=== PATIENT | female | born 1945 | race Caucasian/White ===

== ENCOUNTER 2020-02-23 11:10 | Emergency (ER) | payer BC, MEDICARE ==
[2020-02-23 11:15] VITALS: RESP 18
[2020-02-23 12:33] LABS: Basophils % (A) 0 %; Eosinophils # (A) 0.1 k/uL (0-0.7); Eosinophils % (A) 2 %; HCT 34.7 % (34.0-46.0); Lymphocytes # (A) 1.3 k/uL (1.0-4.8); Lymphocytes % (A) 22 %; MCH 30.7 pg (25.0-35.0); MCHC 34.7 g/dL (31.0-37.0); MCV 88.6 fL (80.0-100.0); Mean Platelet Volume 7.3; Monocytes # (A) 0.4 k/uL (0-1.0); Monocytes % (A) 7 %; Neutrophils # (A) 3.9 k/uL (1.3-7.7); Neutrophils % (A) 67 %; Platelet Count 255 k/uL (150-450); RBC 3.92 m/uL (3.80-5.40); RDW 11.9 % (11.5-15.5); WBC 5.9 k/uL (3.8-10.6)
[2020-02-23 12:34] LABS: Appearance,Urine Clear (Clear); Bilirubin,Urine Negative (Negative); Blood,Urine Negative (Negative); Color,Urine Light Yellow; Glucose,Urine (UA) Negative (Negative); Ketones,Urine Negative (Negative); Leukocyte Esterase,Urine Negative (Negative); Nitrite,Urine Negative (Negative); Protein,Urine Negative (Negative); Specific Gravity,Urine 1.008 (1.001-1.035); Urobilinogen,Urine <2.0 mg/dL (<2.0)
[2020-02-23 12:45] LABS: ALT 16 U/L (4-34); AST 32 U/L (14-36); African American GFR (CKD) >90 (>60 ml/min/1.73 sqM); Albumin 4.1 g/dL (3.5-5.0); Alkaline Phosphatase 155 U/L (38-126); Amylase 59 U/L (30-110); Anion Gap 8 mmol/L; Blood Urea Nitrogen 12 mg/dL (7-17); Calcium 9.3 mg/dL (8.4-10.2); Carbon Dioxide 25 mmol/L (22-30); Chloride 104 mmol/L (98-107); Glucose 90 mg/dL (74-99); Lipase 204 U/L (23-300); Non-African American GFR(CKD) 86 (>60 ml/min/1.73 sqM); Potassium 4.1 mmol/L (3.5-5.1); Sodium 137 mmol/L (137-145); Total Bilirubin 0.6 mg/dL (0.2-1.3); Total Protein 6.8 g/dL (6.3-8.2)
[2020-02-23] MEDS ORDERED: SODIUM CHLORIDE 0.9% 1,000 ML IV STA (13:08)
[2020-02-23] MEDS ORDERED: MORPHINE SULFATE 4 MG/ML SYRINGE IVP STA (13:08)
--- NOTE | 2020-02-23 13:11 | ED ---
General Adult HPI - General Chief complaint: Abdominal Pain Stated complaint: abd pain Time Seen by Provider: 02/23/20 12:35 Source: patient, RN notes reviewed Mode of arrival: ambulatory Limitations: no limitations - History of Present Illness Initial comments: Patient is a pleasant 74-year-old female presenting to the emergency Department with complaints of abdominal discomfort. Onset of symptoms was close to week ago. Symptoms are starting to become severe. Symptoms have progressed. Discomfort is left lower abdomen. No history of similar symptoms previously. Patient states at first she thought it was just gas and was hoping it would go away however has not. No nausea vomiting. No constipation. Patient has had some occasional loose stools. No urinary symptoms. - Related Data Allergies Allergy/AdvReac Type Severity Reaction Status Date / Time No Known Allergies Allergy Verified 02/23/20 11:15 Review of Systems ROS Statement: Those systems with pertinent positive or pertinent negative responses have been documented in the HPI. ROS Other: All systems not noted in ROS Statement are negative. Constitutional: Denies: fever Eyes: Denies: eye pain ENT: Denies: ear pain Respiratory: Denies: cough Cardiovascular: Denies: chest pain Endocrine: Denies: fatigue Gastrointestinal: Reports: as per HPI, abdominal pain. Denies: nausea, vomiting Genitourinary: Denies: dysuria, hematuria Musculoskeletal: Denies: back pain Skin: Denies: rash Neurological: Denies: weakness Past Medical History Past Medical History: No Reported History Past Surgical History: Bladder Surgery, Hysterectomy, Tonsillectomy Additional Past Surgical History / Comment(s): rectal surgery General Exam Limitations: no limitations General appearance: alert, in no apparent distress Head exam: Present: normocephalic Eye exam: Present: normal appearance Neck exam: Present: normal inspection Respiratory exam: Present: normal lung sounds bilaterally Cardiovascular Exam: Present: regular rate, normal rhythm Expanded Peripheral pulses: 2+: Posterior Tibialis (R), Posterior Tibialis (L) GI/Abdominal exam: Present: soft, tenderness (Moderate tenderness left lower quadrant), normal bowel sounds. Absent: distended, guarding, rebound, rigid, pulsatile mass Extremities exam: Present: normal inspection Neurological exam: Present: alert Psychiatric exam: Present: normal affect, normal mood Skin exam: Present: normal color Course Vital Signs 02/23/20 11:12 Temperature 97.3 F L Pulse Rate 98 Respiratory 18 Rate Blood Pressure 164/83 O2 Sat by Pulse 95 Oximetry Medical Decision Making - Medical Decision Making Patient reevaluated. Patient updated on results and concerns. Case discussed with Dr. emerson, covering with Dr. Justice, who will admit covering for Dr. Vang. CK 125 will be ordered. Consults will be placed with surgery and [employer]. - Lab Data Result diagrams: 02/23/20 12:20 02/23/20 12:20 Lab Results 02/23/20 02/23/20 02/23/20 Range/Units 12:20 12:20 12:20 WBC 5.9 (3.8-10.6) k/uL RBC 3.92 (3.80-5.40) m/uL Hgb 12.0 (11.4-16.0) gm/dL Hct 34.7 (34.0-46.0) % MCV 88.6 (80.0-100.0) fL MCH 30.7 (25.0-35.0) pg MCHC 34.7 (31.0-37.0) g/dL RDW 11.9 (11.5-15.5) % Plt Count 255 (150-450) k/uL MPV 7.3 Neutrophils % 67 % Lymphocytes % 22 % Monocytes % 7 % Eosinophils % 2 % Basophils % 0 % Neutrophils # 3.9 (1.3-7.7) k/uL Lymphocytes # 1.3 (1.0-4.8) k/uL Monocytes # 0.4 (0-1.0) k/uL Eosinophils # 0.1 (0-0.7) k/uL Basophils # 0.0 (0-0.2) k/uL Sodium 137 (137-145) mmol/L Potassium 4.1 (3.5-5.1) mmol/L Chloride 104 (98-107) mmol/L Carbon Dioxide 25 (22-30) mmol/L Anion Gap 8 mmol/L BUN 12 (7-17) mg/dL Creatinine 0.68 (0.52-1.04) mg/dL Est GFR (CKD-EPI)AfAm >90 (>60 ml/min/1.73 sqM) Est GFR (CKD-EPI)NonAf 86 (>60 ml/min/1.73 sqM) Glucose 90 (74-99) mg/dL Calcium 9.3 (8.4-10.2) mg/dL Total Bilirubin 0.6 (0.2-1.3) mg/dL AST 32 (14-36) U/L ALT 16 (4-34) U/L Alkaline Phosphatase 155 H (38-126) U/L Total Protein 6.8 (6.3-8.2) g/dL Albumin 4.1 (3.5-5.0) g/dL Amylase 59 (30-110) U/L Lipase 204 (23-300) U/L Urine Color Light Yellow Urine Appearance Clear (Clear) Urine pH 6.0 (5.0-8.0) Ur Specific Berthold 1.008 (1.001-1.035) Urine Protein Negative (Negative) Urine Glucose (UA) Negative (Negative) Urine Ketones Negative (Negative) Urine Blood Negative (Negative) Urine Nitrite Negative (Negative) Urine Bilirubin Negative (Negative) Urine Urobilinogen <2.0 (<2.0) mg/dL Ur Leukocyte Esterase Negative (Negative) - Radiology Data Radiology results: image reviewed (Computed tomography scan abdomen pelvis shows complex bilateral adnexal masses with peritoneal and omental implants. Intubation into the sigmoid colon suspected. Fever over and carcinoma. Pulmonary nodule. Mild bilateral hydronephrosis.) Disposition Clinical Impression: Pelvic mass Disposition: ADMITTED IP TO THIS HOSP Is patient prescribed a controlled substance at d/c from ED?: No Referrals: Erick Vang DO [Primary Care Provider] - 1-2 days Decision Time: 14:22
--- NOTE | 2020-02-23 14:08 | CT ---
EXAMINATION TYPE: CT abdomen pelvis w con DATE OF EXAM: 02/23/2020 COMPARISON: None HISTORY: Left lower quadrant pain CT DLP: 1023.1 mGycm Automated exposure control for dose reduction was used. CONTRAST: CT scan of the abdomen pelvis is performed with IV Contrast, patient injected with 100 mL of Isovue 3 00. FINDINGS- LUNG BASES-subsegmental linear changes most typical of atelectasis. Within the lungs. There is a 2 mm subpleural nodule left lower lobe axial image 11 laterally. 2 small to characterize. No pleural effu alexia. 6 mm subpleural density along the anterior pleura the right upper lobe on image 1 likely is pos tinflammatory. LIVER/GB- No gross abnormality is appreciated. PANCREAS- No gross abnormality is seen. SPLEEN- No gross abnormality is seen. ADRENALS- No gross abnormality is seen. KIDNEYS/BLADDER-no evidence of renal mass. There does appear to mild dilation of both ureters which c ould be related to pelvic mass greater on the left. BOWEL-there is a large mass involving the pelvis which appears to either involve or invade sigmoid co andreas. Appears to be somewhat heterogeneous with possible cystic on. Measuring 8 cm. Additional cystic lesion in the right adnexa measuring 5 cm. Differential diagnosis would include a bilateral ovarian c arcinoma with involvement of the sigmoid colon. Primary colonic neoplasm also in the differential nicolasa gnosis but felt less likely. Trace amount of fluid is seen in the pelvis. There are pelvic varices.. LYMPH NODES- No greater than 1cm abdominal or pelvic lymph nodes areappreciated. No sizable retroper itoneal adenopathy. No definite sizable lymph nodes within the pelvis. Omental and peritoneal implant s are noted as discussed. OSSEOUS STRUCTURES-hypertrophic and degenerative changes spine with grade 1 anterolisthesis L4 on L5. Multilevel facet arthropathy.. OTHER- large pelvic mass measuring 8 to 9 cm on the left with either encasement or displacement:. Ad jacent 5 cm right adnexal cystic mass. Ovarian carcinoma is favored over colonic adenocarcinoma. Both are in the differential diagnosis. There appear to be multiple intra-abdominal peritoneal and omenta l implants largest on the left measuring 4 cm. Additionally, along the right flank there appears to b e a cystic structure measuring a craniocaudal dimension of 6.3 cm appears separate from bowel may rep resent additional cystic implant. Calcifications in the mesentery are incidentally noted. There is a nodular density in the left pelvis on the right axial image 55 likely related to the right ovarian ma ss or a separate implant measuring 2.6 cm. IMPRESSION- 1. Complex bilateral adnexal masses with peritoneal and omental implants. Visualization the sigmoid c olon is difficult due to either compression, invasion or displacement of the sigmoid colon of these s uspected complex pelvic masses to be partially cystic component. Would favor ovarian carcinoma over c olon carcinoma. Correlate with CA 125. 2. 2 mm left lower lobe pulmonary nodule too small to characterize subpleural location. 3. Very mild bilateral hydronephrosis likely related to pelvic masses are
[2020-02-23] MEDS ORDERED: traMADol 50 MG TAB PO PRN (14:23)
[2020-02-23] MEDS ORDERED: ACETAMINOPHEN TAB 325 MG TAB PO PRN (14:23)
[2020-02-23] MEDS ORDERED: NALOXONE 0.4 MG/ML 1 ML VIAL IV PRN (14:23)
[2020-02-23] MEDS ORDERED: MORPHINE SULFATE 4 MG/ML SYRINGE IV PRN (14:23)
[2020-02-23] MEDS ORDERED: SODIUM CHLORIDE 0.9% 1,000 ML IV SCH (14:30)
--- NOTE | 2020-02-23 15:24 | P.HPIM ---
History of Present Illness this is a pleasant 74 years old female with no significant past medical history.she has past surgical history of hysterectomy. she is a patient of Dr. Vang. Presents because of left lower quadrant abdominal pain of more than a week duration, pain also radiates to the suprapubic region, felt like crampy and labor. The description of the patient, about 7/10 in severity. Associated with some loose stool but no lauryn diarrhea, no other abdominal pain or nausea vomiting. She tolerates diet well. she denies chest pain or dyspnea. No fever. No weakness she denies smoking, alcohol or illicit drugs patient Vitas looks stable.labs were unremarkable including CBC, BMP, liver enzymes,normal lipase 204, urine analysis is unremarkable. CT of the abdomen and pelvis showing left lower lobe lung nodule, 2 mm, right upper lobe pulmonary nodule, 6 mm. Large pelvic mass which is either involving or invade the sigmoid colon, about 8 cm. Also there is right technique Trupti cystic lesion, 5 cm. Multiple intra-abdominal peritoneal and omental implants largest in the left measured 4 cm Review of Systems CONSTITUTIONAL: No fever, no malaise, no fatigue. HEENT: No recent visual problems or hearing problems. Denied any sore throat. CARDIOVASCULAR: No orthopnea, PND, no palpitations, no syncope. PULMONARY: No shortness of breath, no cough, no hemoptysis. GASTROINTESTINAL: No diarrhea, no nausea, no vomiting, no abdominal pain. Normoactive bowel sounds. NEUROLOGICAL: No headaches, no weakness, no numbness. HEMATOLOGICAL: Denies any bleeding or petechiae. GENITOURINARY: Denies any burning micturition, frequency, or urgency. MUSCULOSKELETAL/RHEUMATOLOGICAL: Denies any joint pain, swelling, or any muscle pain. ENDOCRINE: Denies any polyuria or polydipsia. Past Medical History Past Medical History: No Reported History Past Surgical History: Bladder Surgery, Hysterectomy, Tonsillectomy Additional Past Surgical History / Comment(s): rectal surgery Medications and Allergies Allergies Allergy/AdvReac Type Severity Reaction Status Date / Time No Known Allergies Allergy Verified 02/23/20 11:15 Physical Exam Vitals: Vital Signs Temp Pulse Resp BP Pulse Ox 02/23/20 11:12 97.3 F L 98 18 164/83 95 Intake and Output 02/22/20 02/23/20 02/23/20 22:59 06:59 14:59 Other: Weight 74.843 kg GENERAL: The patient is alert and oriented x3, not in any acute distress. Well developed, well nourished. HEENT: Pupils are round and equally reacting to light. EOMI. No scleral icterus. No conjunctival pallor. Normocephalic, atraumatic. No pharyngeal erythema. No thyromegaly. CARDIOVASCULAR: S1 and S2 present. No murmurs, rubs, or gallops. PULMONARY: Chest is clear to auscultation, no wheezing or crackles. ABDOMEN: Soft, nontender, nondistended, normoactive bowel sounds. No palpable organomegaly. MUSCULOSKELETAL: No joint swelling or deformity. EXTREMITIES: No cyanosis, clubbing, or pedal edema. NEUROLOGICAL: Gross neurological examination did not reveal any focal deficits. SKIN: No rashes. No petechiae Results CBC & Chem 7: 02/23/20 12:20 02/23/20 12:20 Labs: Abnormal Lab Results - Last 24 Hours (Table) 02/23/20 Range/Units 12:20 Alkaline Phosphatase 155 H (38-126) U/L Assessment and Plan Assessment: 8 cm pelvic mass involving the sigmoid colon, could be primarily from the colon or the ovary with metastasis to the colon Left ovarian adnexal mass about 5 cm, possible right adnexal mass, 2.6 cm multiple Peritoneal and omental implants suspicious for metastatic disease. Pulmonary nodules 2 history of hysterectomy Plan: this is a pleasant 74 years old female who presents with abdominal pain and pelvic mass and possible bilateral ovarian masses. Continue with gentle hydration. Pain management. Follow-up recommendation by surgery and [employer] team Labs and medication were reviewed.. Continue same treatment. Continue with symptomatic treatment. Resume home medication. Monitor lytes and vitals. DVT and GI prophylaxis. Further recommendations depends on the clinical course of the patient DVT prophylaxis: Subcutaneous heparin GI Prophylaxis: Pepcid PT/OT: Pending Prognosis is guarded
[2020-02-23 19:52] VITALS: BP 190/76; PULSE 92; TEMP 97.1
[2020-02-23] MEDS ORDERED: HEPARIN SODIUM,PORCINE 5,000 UNIT/ML 1 ML VIAL SQ SCH (21:00)
[2020-02-23] MEDS ORDERED: FAMOTIDINE 20 MG/2 ML VIAL IV SCH (21:00)
[2020-02-24 02:20] LABS: Alpha Fetoprotein, Tumor Mkr <2.5 ng/mL (0.0-7.9); Carcinoembryonic Antigen 0.6 ng/mL (0.0-4.9)
== END 2020-02-23 19:51 | disposition left against medical advice (07) ==
LOC: EC 11:10 → 2ORMAIN 14:23 → UNDOADMIN 14:23 → EC 19:51
DX: K63.89 Other specified diseases of intestine (principal); N83.8 Other noninflammatory disorders of ovary, fallopian tube and broad ligament; R91.8 Other nonspecific abnormal finding of lung field; Z90.710 Acquired absence of both cervix and uterus; Z53.29 Procedure and treatment not carried out because of patient's decision for other reasons
CPT/HCPCS: 36415; 80053; 86304; 82378; 82150; 83690; 85025; 81003; 82105; 74177; 99284; 96360; 96361 ×5; Q9967

== ENCOUNTER 2020-08-02 09:28 | Observation (INO) | payer MEDICARE ==
[2020-08-02] MEDS ORDERED: ASPIRIN 81 MG PO STA (09:57)
[2020-08-02] MEDS ORDERED: NITROGLYCERIN SL TABS 0.4 MG TAB SUBLINGUAL STA (09:57)
[2020-08-02] MEDS ORDERED: SODIUM CHLORIDE 0.9% 1,000 ML IV STA (09:58)
[2020-08-02] MEDS ORDERED: SODIUM CHLORIDE 0.9% 500 ML 500 ML IV STA (09:58)
--- NOTE | 2020-08-02 10:14 | ED ---
Chest Pain HPI - General Chief Complaint: Chest Pain Stated Complaint: Chest/Back Pain Time Seen by Provider: 08/02/20 09:40 Source: patient, RN notes reviewed Mode of arrival: wheelchair Limitations: physical limitation - History of Present Illness Initial Comments: This is a 74-year-old female with a history of ovarian cancer with her last chemo approximately month ago no prior history however of lung or heart disease who presents with complaints of the onset of retrosternal chest pressure with some radiation to left arm. She states is currently for/10 in severity it was worse last night. She states it started around 11:30 PM last evening. He has been intermittent. No other complaints or modifying factors she states she did take some aspirin last evening. MD Complaint: chest pain, other - Related Data Home Medications Medication Instructions Recorded Confirmed Biotin 5 mg PO DAILY 02/23/20 08/02/20 Multivitamins, Thera [Multivitamin 1 tab PO DAILY 02/23/20 08/02/20 (formulary)] Ascorbic Acid [Vitamin C] 1,000 mg PO DAILY 08/02/20 08/02/20 Losartan [Cozaar] 25 mg PO DAILY 08/02/20 08/02/20 OLANZapine [ZyPREXA] 5 mg PO DIRECTED 08/02/20 08/02/20 ondansetron HCL [Zofran] 8 mg PO DIRECTED 08/02/20 08/02/20 Allergies Allergy/AdvReac Type Severity Reaction Status Date / Time No Known Allergies Allergy Verified 08/02/20 10:26 Review of Systems ROS Statement: Those systems with pertinent positive or pertinent negative responses have been documented in the HPI. ROS Other: All systems not noted in ROS Statement are negative. EKG Findings - EKG Results: EKG: interpreted by SAMEER, sinus rhythm (Sinus tachycardia rate of 118. We'll 132 QRS 72 QT since QTC 320/[address] configuration) Past Medical History Past Medical History: Cancer, Hypertension Additional Past Medical History / Comment(s): ovarian ca, anemia, low white count History of Any Multi-Drug Resistant Organisms: None Reported Past Surgical History: Bladder Surgery, Hysterectomy, Tonsillectomy Additional Past Surgical History / Comment(s): rectal surgery Past Psychological History: No Psychological Hx Reported Smoking Status: Never smoker Past Alcohol Use History: None Reported Past Drug Use History: None Reported General Exam - General Exam Comments Initial Comments: This is a well-developed asthenic appearing female who is awake alert oriented 3 Limitations: physical limitation General appearance: alert, in no apparent distress Head exam: Present: atraumatic, normocephalic, normal inspection Eye exam: Present: normal appearance, PERRL, EOMI. Absent: scleral icterus, conjunctival injection, periorbital swelling ENT exam: Present: mucous membranes dry Neck exam: Present: normal inspection. Absent: tenderness, meningismus, lymphadenopathy Respiratory exam: Present: normal lung sounds bilaterally. Absent: respiratory distress, wheezes, rales, rhonchi, stridor Cardiovascular Exam: Present: normal rhythm, tachycardia, normal heart sounds. Absent: systolic murmur, diastolic murmur, rubs, gallop, clicks GI/Abdominal exam: Present: soft, normal bowel sounds. Absent: distended, tenderness, guarding, rebound, rigid Extremities exam: Present: normal inspection, full ROM, normal capillary refill. Absent: tenderness, pedal edema, joint swelling, calf tenderness Back exam: Present: normal inspection Neurological exam: Present: alert, oriented X3, CN II-XII intact Psychiatric exam: Present: normal affect, normal mood Skin exam: Present: warm, dry, intact, normal color. Absent: rash Course Vital Signs 08/02/20 08/02/20 08/02/20 09:33 10:25 11:36 Temperature 97.2 F L Pulse Rate 135 H 112 H 105 H Respiratory 20 18 18 Rate Blood Pressure 141/70 134/58 117/56 O2 Sat by Pulse 97 97 97 Oximetry Chest Pain MDM - MDM I did discuss findings with patient family as well as with Dr. Shimon fernandes. Patient will be admitted for evaluation by cardiology. Disposition Clinical Impression: Chest pain, Tachycardia, History of ovarian cancer Disposition: ADMITTED IP TO THIS [facility] Condition: Fair Referrals: Miky Engel MD [Primary Care Provider] - 1-2 days
[2020-08-02 10:35] LABS: Basophils % (A) 0 %; Eosinophils % (A) 0 %; HCT 26.5 % (34.0-46.0); HGB 9.6 gm/dL (11.4-16.0); Lymphocytes # (A) 0.7 k/uL (1.0-4.8); Lymphocytes % (A) 6 %; MCHC 36.1 g/dL (31.0-37.0); MCV 91.4 fL (80.0-100.0); Mean Platelet Volume 7.2; Monocytes # (A) 0.7 k/uL (0-1.0); Monocytes % (A) 6 %; Neutrophils # (A) 9.2 k/uL (1.3-7.7); Neutrophils % (A) 87 %; Platelet Count 158 k/uL (150-450); RDW 15.3 % (11.5-15.5); WBC 10.6 k/uL (3.8-10.6)
[2020-08-02 11:01] LABS: Albumin 4.3 g/dL (3.5-5.0); Calcium 9.3 mg/dL (8.4-10.2); Magnesium 1.6 mg/dL (1.6-2.3); Potassium 3.7 mmol/L (3.5-5.1); Total Bilirubin 0.7 mg/dL (0.2-1.3); Total Protein 6.9 g/dL (6.3-8.2)
--- NOTE | 2020-08-02 11:08 | XR ---
EXAMINATION TYPE: XR chest 2V DATE OF EXAM: 08/02/2020 COMPARISON: NONE HISTORY: Left-sided chest pain into arm. History of ovarian cancer on chemotherapy. TECHNIQUE: Frontal and lateral views of the chest are obtained. FINDINGS: There is some chronic parenchymal change with tiny left pleural effusion. No suspicious fo jeanne airspace opacity or pneumothorax. The cardiac silhouette size is upper limits of normal. The os seous structures are somewhat demineralized. IMPRESSION: Chronic changes with tiny left pleural effusion. No suspicious focal infiltrate.
[2020-08-02 11:14] LABS: INR 0.9 (<1.2); Prothrombin Time 10.2 sec (9.0-12.0)
[2020-08-02 11:25] LABS: Partial Thromboplastin Time 21.4 sec (22.0-30.0)
--- NOTE | 2020-08-02 12:49 | CT ---
EXAMINATION TYPE: CT angio chest DATE OF EXAM: 08/02/2020 12:35 PM COMPARISON: Same day chest x-ray. HISTORY: Chest/back pain, history of ovarian cancer. CT DLP: 322 mGycm Automated exposure control for dose reduction was used. CONTRAST: CTA scan of the thorax is performed with IV Contrast, patient injected with 68 mL of Isovue 370, pulm onary embolism protocol. MIP images are created and reviewed. FINDINGS: LUNGS: Mild underlying emphysematous change. Mild linear scarring and/or atelectasis in the lower cecilio gs. Dependent atelectasis in the bases. No suspicious focal consolidation or groundglass opacity. Tra ce left-sided pleural effusion. No pneumothorax bilaterally. No concerning pulmonary nodules or dany s MEDIASTINUM: There is satisfactory enhancement of the pulmonary artery and its branches, there is no CT evidence for pulmonary embolism. There are no greater than 1 cm hilar or mediastinal lymph nodes. . Prominent but subcentimeter left hilar lymph nodes . No cardiomegaly is seen. Trace pericardial e ffusion. OTHER: Small hiatal hernia. Exaggerated thoracic kyphosis with mild multilevel anterior spurring. IMPRESSION: No CT evidence for acute pulmonary embolism. Mild chronic emphysematous change without ac alfa pulmonary infiltrate.
[2020-08-02] MEDS ORDERED: NITROGLYCERIN SL TABS 0.4 MG TAB SUBLINGUAL PRN (13:35)
[2020-08-02] MEDS ORDERED: OLANZapine 5 MG TAB PO SCH (13:45)
[2020-08-02] MEDS ORDERED: NON FORMULARY DRUG (Ondansetron Hcl [Zofran] 8 MG Tablet) PO SCH (13:45)
[2020-08-03 03:29] LABS: Cholesterol 188 mg/dL (<200); HDL Cholesterol 56 mg/dL (40-60); LDL Cholesterol,Calculated 117 mg/dL (0-99); Triglycerides 74 mg/dL (<150)
[2020-08-03 08:01] VITALS: RESP 16
[2020-08-03] MEDS ORDERED: MULTIVITAMINS, THERA 1 EACH TAB PO SCH (09:00)
[2020-08-03] MEDS ORDERED: LOSARTAN 25 MG TAB PO SCH (09:00)
[2020-08-03] MEDS ORDERED: ASPIRIN 325 MG TAB PO SCH (09:00)
[2020-08-03] MEDS ORDERED: NON FORMULARY DRUG (Biotin [Biotin] 5 MG Capsule) PO SCH (09:00)
[2020-08-03] MEDS ORDERED: ASCORBIC ACID 500 MG TAB PO SCH (09:00)
[2020-08-03 11:16] LABS: C Reactive Protein 5.8 mg/dL (<1.0)
--- NOTE | 2020-08-03 11:33 | P.HPIM ---
History of Present Illness H&P Date: 08/03/20 Chief Complaint: Chest pain HISTORY AND PHYSICAL AND DISCHARGE SUMMARY: HISTORY OF PRESENT ILLNESS This is a 74-year-old female patient of Dr. Engel with past medical history of ovarian cancer under treatment at [facility] with chemotherapy. She is due for her fifth treatment today. History of hype rtension, anemia, remote history of tobacco use. Patient states she she developed chest pain and felt like she had pneumonia. Pain was midsternal and radiated to the left arm. Patient denies having any diarrhea or constipation. Patient states that the pain started around 11:30 last evening and she took some aspirin which did not seem to help and her son brought her into the hospital for evaluation. Patient presented to [facility] emergency center. EKG was a sinus rhythm with heart rate of 118. She was afebrile, blood pressure 141/70, heart rate 135, pulse ox 97% on room air. WBC 10.6, hemoglobin 9.6, platelet count 158. D-dimer 8.24. Sodium 136 otherwise electrolytes normal, BUN 23 and creatinine 0.83. Blood sugar 140. Liver function tests were normal. CK was 46. Troponins 0.03, 0.026, 0.025. Triglycerides 74, cholesterol 188, LDL 117, HDL 56. COVID-19 not detected. X-ray reveals chronic changes with tiny left pleural effusion. No suspicious focal infiltrate. CTA of the chest revealed no pulmonary embolism. Mild chronic emphysematous change without acute pulmonary infiltrate. Echocardiogram reveals Patient has been seen by cardiology and cleared for discharge. REVIEW OF SYSTEMS Constitutional: No fever, no chills, no night sweats. No weight change. No weakness, fatigue or lethargy. No daytime sleepiness. EENT: No headache. No blurred vision or double vision, no loss of vision. No loss of Hearing, no ringing in the ears, no dizziness. No nasal drainage or congestion. No epistaxis. No sore throat. Lungs: No shortness of breath, cough, no sputum production. No wheezing. Cardiovascular: Reports chest pain, no lower extremity edema. No palpitations. No paroxysmal nocturnal dyspnea. No orthopnea. No lightheadedness or dizziness. No syncopal episodes. Abdominal: No abdominal pain. No nausea, vomiting. No diarrhea. No constipation. No bloody or tarry stools.. No loss of appetite. Genitourinary: No dysuria, increased frequency, urgency. No urinary retention. Musculoskeletal: No myalgias. No muscle weakness, no gait dysfunction, no frequent falls. No back pain. No neck pain. Integumentary: No wounds, no lesions. No rash or pruritus. No unusual bruising. No change in hair or nails. Neurologic: No aphasia. No facial droop. No change in mentation. No head injury. No headache. No paralysis. No paresthesia. Psychiatric: No depression. No anxiety. No mood swings. Endocrine: No abnormal blood sugars. No weight change. No excessive sweating or thirst. No cold intolerance. SOCIAL HISTORY Patient was a smoker of one third pack per day and quit 26 years ago. She denies any alcohol use, illicit drug use. FAMILY HISTORY Mother at age 82 from heart failure with history of breast cancer. Father at age 96 from CHF. Patient has 1 brother that at age 63 from colorectal cancer. Patient does not have any sisters. Patient has her children. One son had 2 episodes of colorectal cancer. Patient has 1 daughter this had cervical cancer. PHYSICAL EXAMINATION Gen: This is a 74-year-old female. Patient is resting comfortable in bed. No acute distress noted. HEENT: Head is atraumatic, normocephalic. Pupils equal, round. Sclerae is anicteric. NECK: Supple. No JVD. No lymphadenopathy. No thyromegaly. LUNGS: Clear to auscultation. No wheezes or rhonchi. No intercostal ret ractions. HEART: Regular rate and rhythm. No murmur. ABDOMEN: Soft. Bowel sounds are present. No masses. No tenderness. EXTREMITIES: No pedal edema. No calf tenderness. NEUROLOGICAL: Patient is awake, alert and oriented x3. Cranial nerves 2 through 12 are grossly intact. ASSESSMENT AND PLAN 1. Chest pain with negative troponins. Echocardiogram as above. Cardiology consult appreciated. 2. Hypertension. Continue losartan 25 mg daily. 3. Ovarian cancer under treatment at [facility]. 4. 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 5. COVID-19 testing negative. Patient has been hospitalized during a pandemic. Patient is observation status. DISCHARGE PLAN Home. Impression and plan of care have been directed as dictated by the signing physician. Angie Aparicio nurse practitioner acting as scribe for signing lizeth macdonaldian. Past Medical History Past Medical History: Cancer, Hypertension Additional Past Medical History / Comment(s): ovarian ca, anemia, low white count History of Any Multi-Drug Resistant Organisms: None Reported Past Surgical History: Bladder Surgery, Hysterectomy, Tonsillectomy Additional Past Surgical History / Comment(s): rectal surgery Past Anesthesia/Blood Transfusion Reactions: No Reported Reaction Past Psychological History: No Psychological Hx Reported Smoking Status: Former smoker Past Alcohol Use History: None Reported Past Drug Use History: None Reported - Past Family History Mother Family Medical History: Cancer, Hypertension Father Family Medical History: Cancer, Congestive Heart Failure (CHF) Medications and Allergies Home Medications Medication Instructions Recorded Confirmed Type Biotin 5 mg PO DAILY 02/23/20 08/02/20 History Multivitamins, Thera [Multivitamin 1 tab PO DAILY 02/23/20 08/02/20 History (formulary)] Ascorbic Acid [Vitamin C] 1,000 mg PO DAILY 08/02/20 08/02/20 History Losartan [Cozaar] 25 mg PO DAILY 08/02/20 08/02/20 History OLANZapine [ZyPREXA] 5 mg PO DIRECTED 08/02/20 08/02/20 History ondansetron HCL [Zofran] 8 mg PO DIRECTED 08/02/20 08/02/20 History Allergies Allergy/AdvReac Type Severity Reaction Status Date / Time No Known Allergies Allergy Verified 08/02/20 10:26 Physical Exam Vitals: Vital Signs Temp Pulse Pulse Resp BP BP Pulse Ox 08/03/20 07:00 97.8 F 100 16 111/63 96 08/03/20 02:30 106 H 18 08/03/20 01:34 98.1 F 96 16 117/69 92 L 08/02/20 22:08 99.2 F 106 H 18 144/65 94 L 08/02/20 18:32 99.1 F 109 H 16 141/69 94 L 08/02/20 11:36 105 H 18 117/56 97 08/02/20 10:25 112 H 18 134/58 97 Intake and Output 08/02/20 08/03/20 08/03/20 22:59 06:59 14:59 Other: Voiding Method Toilet # Voids 1 2 Weight 73.028 kg Results CBC & Chem 7: 08/02/20 10:09 08/02/20 10:09 Labs: Abnormal Lab Results - Last 24 Hours (Table) 08/02/20 08/02/20 08/02/20 Range/Units 10:09 10:09 10:09 RBC 2.90 L (3.80-5.40) m/uL Hgb 9.6 L (11.4-16.0) gm/dL Hct 26.5 L (34.0-46.0) % Neutrophils # 9.2 H (1.3-7.7) k/uL Lymphocytes # 0.7 L (1.0-4.8) k/uL APTT 21.4 L (22.0-30.0) sec D-Dimer 8.24 H (<0.60) mg/L FEU Sodium 136 L (137-145) mmol/L BUN 23 H (7-17) mg/dL Glucose 140 H (74-99) mg/dL LDL Cholesterol, Calc (0-99) mg/dL 08/02/20 Range/Units 10:09 RBC (3.80-5.40) m/uL Hgb (11.4-16.0) gm/dL Hct (34.0-46.0) % Neutrophils # (1.3-7.7) k/uL Lymphocytes # (1.0-4.8) k/uL APTT (22.0-30.0) sec D-Dimer (<0.60) mg/L FEU Sodium (137-145) mmol/L BUN (7-17) mg/dL Glucose (74-99) mg/dL LDL Cholesterol, Calc 117 H (0-99) mg/dL Thrombosis Risk Factor Assmnt - Choose All That Apply Any of the Below Risk Factors Present?: No Each Risk Factor Represents 2 Points: Age 61-74 years Other congenital or acquired thrombophilia - If yes, enter type in comment: No Thrombosis Risk Factor Assessment Total Risk Factor Score: 2 Thrombosis Risk Factor Assessment Level: Low Risk
--- NOTE | 2020-08-03 14:38 | P.CRDCN ---
History of Present Illness History of present illness: HISTORY OF PRESENTING ILLNESS This is a pleasant 74-year-old female past medical history significant for hypertension, ovarian cancer last chemotherapy about 4 weeks ago. She does n ot follow with a av specialist. We have been asked to see in consultation for chest pain. Patient is seen and examined at bedside, lying in bed with no acute distress. She states she started having left-sided chest pain 01/22 on Saturday at 11:30PM. She states that chest pain has this week. She does have radiation to her left arm and bilateral shoulders. She denies exertional chest pain. Deep Breathing and when she coughs aggravates the pain. The pain is intermittent. On exam, patient only has the pain when she is deep breathing. She states this is similar pain to when she had pneumonia in the past. She denies associated shortness of breath, palpitations, lightheadedness, nausea, diaphores is, back pain, or syncope. She denies symptoms of orthopnea or PND. She denies cardiac history, history of MD, stroke, or Diabetes. She was a former smoker but quit 20+ years ago. She denies current or prior alcohol or illicit drug abuse. Current home cardiac medications include Losartan 25mg daily. EKG revealed sinus tach, early repolarization noted, non-specific ST-T wave abnormalities. CT chest revealed no acute pulmonary embolism, mild underlying emphysematous changes, mild linear scarring and/or atelectasis in the lower lungs, trace left-sided pleural effusion. Laboratory data reviewed, troponin negative 3, d-dimer 8.24, sodium 136, potassium 3.7, serum creatinine 0.83, triglycerides 74, cholesterol 188, LDL 117, HDL 56, hemoglobin 9.6, WBC 10.6, platelets 150, covid-19 PCR negative REVIEW OF SYSTEMS At the time of my exam: CONSTITUTIONAL: Denies fever or chills. CARDIOVASCULAR: + chest pain, + shortness of breath,Denies orthopnea, PND or palpitations. RESPIRATORY:+cough. GASTROINTESTINAL: Denies abdominal pain, diarrhea, constipation, nausea or vomiting. MUSCULOSKELETAL: Denies myalgias. NEUROLOGIC: Denies numbness, tingling, headacbe or weakness. ENDOCRINE: +Fatigue Denies weight change, polydipsia or polyurina. GENITOURINARY: Denies burning, hematuria or urgency with micturation. HEMATOLOGIC: Denies history of anemia or bleeding. PHYSICAL EXAMINATION Vital signs blood pressure normal over 63, heart rate 100, afebrile, maintaining oxygen 96% on room air. Patient not placed on telemetry, unable to review. CONSTITUTIONAL: No apparent distress. HEENT: Head is normocephalic. Pupils are equal, round. Sclerae anicteric. Mucous membranes of the mouth are moist. No JVD. No carotid bruit. CHEST EXAMINATION: Lungs are clear to auscultation. No chest wall tenderness is noted on palpation or with deep breathing. HEART EXAMINATION: Regular rate and rhythm. S1, S2 heard. No murmurs, gallops or rub. ABDOMEN: Soft, nontender. Positive bowel sounds. EXTREMITIES: 2+ peripheral pulses, no lower extremity edema and no calf tenderness. SKIN: intact NEUROLOGIC EXAMINATION: Patient is awake, alert and oriented x3. ASSESSMENT Chest pain, atypical, most likely pleuritic in nature. Troponin negative x 3, EKG with no signs of ischemic changes. Concern for possible pericardial effusion with patient's shortness of breath and cancer diagnosis. History of Hypertension Ovarian Cancer PLAN 2D echocardiogram ordered- will follow up on results. No indication for stress test or further cardiac workup at this time. Continue losartan 25mg daily Nurse Practitioner note has been reviewed, I agree with a documented findings and plan of care. Patient was seen and examined. Past Medical History Past Medical History: Cancer, Hypertension Additional Past Medical History / Comment(s): ovarian ca, anemia, low white count History of Any Multi-Drug Resistant Organisms: None Reported Past Surgical History: Bladder Surgery, Hysterectomy, Tonsillectomy Additional Past Surgical History / Comment(s): rectal surgery Past Anesthesia/Blood Transfusion Reactions: No Reported Reaction Past Psychological History: No Psychological Hx Reported Smoking Status: Former smoker Past Alcohol Use History: None Reported Past Drug Use History: None Reported - Past Family History Mother Family Medical History: Cancer, Hypertension Father Family Medical History: Cancer, Congestive Heart Failure (CHF) Medications and Allergies Home Medications Medication Instructions Recorded Confirmed Type Multivitamins, Thera [Multivitamin 1 tab PO DAILY 02/23/20 08/02/20 History (formulary)] RX: Biotin 5 mg PO DAILY 02/23/20 08/02/20 History Ascorbic Acid [Vitamin C] 1,000 mg PO DAILY 08/02/20 08/02/20 History Losartan [Cozaar] 25 mg PO DAILY 08/02/20 08/02/20 History OLANZapine [ZyPREXA] 5 mg PO DIRECTED 08/02/20 08/02/20 History ondansetron HCL [Zofran] 8 mg PO DIRECTED 08/02/20 08/02/20 History Allergies Allergy/AdvReac Type Severity Reaction Status Date / Time No Known Allergies Allergy Verified 08/02/20 10:26 Physical Exam Vitals: Vital Signs Temp Pulse Pulse Resp BP BP Pulse Ox 08/03/20 07:00 97.8 F 100 16 111/63 96 08/03/20 02:30 106 H 18 08/03/20 01:34 98.1 F 96 16 117/69 92 L 08/02/20 22:08 99.2 F 106 H 18 144/65 94 L 08/02/20 18:32 99.1 F 109 H 16 141/69 94 L 08/02/20 11:36 105 H 18 117/56 97 08/02/20 10:25 112 H 18 134/58 97 08/02/20 09:33 97.2 F L 135 H 20 141/70 97 Intake and Output 08/02/20 08/03/20 08/03/20 22:59 06:59 14:59 Other: Voiding Method Toilet # Voids 1 2 Weight 73.028 kg Results 08/02/20 10:09 08/02/20 10:09 Cardiac Enzymes 08/02/20 08/02/20 08/02/20 Range/Units 10:09 10:09 14:05 AST 28 (14-36) U/L Troponin I 0.030 0.026 (0.000-0.034) ng/mL 08/02/20 Range/Units 16:32 AST (14-36) U/L Troponin I 0.025 (0.000-0.034) ng/mL Coagulation 08/02/20 Range/Units 10:09 PT 10.2 (9.0-12.0) sec APTT 21.4 L (22.0-30.0) sec Lipids 08/02/20 Range/Units 10:09 Triglycerides 74 (<150) mg/dL Cholesterol 188 (<200) mg/dL HDL Cholesterol 56 (40-60) mg/dL CBC 08/02/20 Range/Units 10:09 WBC 10.6 (3.8-10.6) k/uL RBC 2.90 L (3.80-5.40) m/uL Hgb 9.6 L (11.4-16.0) gm/dL Hct 26.5 L (34.0-46.0) % Plt Count 158 (150-450) k/uL Comprehensive Metabolic Panel 08/02/20 Range/Units 10:09 Sodium 136 L (137-145) mmol/L Potassium 3.7 (3.5-5.1) mmol/L Chloride 103 (98-107) mmol/L Carbon Dioxide 22 (22-30) mmol/L BUN 23 H (7-17) mg/dL Creatinine 0.83 (0.52-1.04) mg/dL Glucose 140 H (74-99) mg/dL Calcium 9.3 (8.4-10.2) mg/dL AST 28 (14-36) U/L ALT 14 (4-34) U/L Alkaline Phosphatase 87 (38-126) U/L Total Protein 6.9 (6.3-8.2) g/dL Albumin 4.3 (3.5-5.0) g/dL Current Medications Generic Name Dose Route Start Last Admin Trade Name Freq PRN Reason Stop Dose Admin Ascorbic Acid 1,000 mg 08/03/20 09:00 Ascorbic Acid 500 Mg Tab PO DAILY [facility] Aspirin 325 mg 08/03/20 09:00 Aspirin 325 Mg Tab PO DAILY [facility] Losartan Potassium 25 mg 08/03/20 09:00 Losartan 25 Mg Tab PO DAILY [facility] Multivitamins 1 each 08/03/20 09:00 Multivitamins, Thera 1 Each Tab PO DAILY [facility] Nitroglycerin 0.4 mg 08/02/20 13:35 Nitroglycerin Sl Tabs 0.4 Mg Tab SUBLINGUAL Q5M PRN Chest Pain Intake and Output 08/02/20 08/03/20 08/03/20 22:59 06:59 14:59 Other: Voiding Method Toilet # Voids 1 2 Weight 73.028 kg 08/02/20 10:09 08/02/20 10:09
[2020-08-03 15:14] VITALS: BP 132/73; PULSE 98; TEMP 98.6
--- NOTE | 2020-08-03 16:00 | ECHOF ---
Referral Reason:Chest pain MEASUREMENTS -------- HEIGHT: 160.0 cm WEIGHT: 73.0 kg BP: 117/56 RVIDd: 3.1 cm (< 3.3) IVSd: 1.1 cm (0.6 - 1.1) LVIDd: 3.9 cm (3.9 - 5.3) LVPWd: 1.0 cm (0.6 - 1.1) IVSs: 1.5 cm LVIDs: 2.3 cm LVPWs: 1.6 cm LA Diam: 3.1 cm (2.7 - 3.8) Ao Diam: 2.9 cm (2.0 - 3.7) AV Cusp: 2.0 cm (1.5 - 2.6) MV EXCURSION: 12.690 mm (> 18.000) MV EF SLOPE: 57 mm/s (70 - 150) EPSS: 0.7 cm MV E Dante: 0.81 m/s MV DecT: 153 ms MV A Dante: 0.94 m/s MV E/A Ratio: 0.86 RAP: 5.00 mmHg RVSP: 28.98 mmHg FINDINGS -------- Resting tachycardia (HR>100bpm). This was a technically good study. The left ventricular size is normal. There is borderline concentric left ventricular hypertrophy. Overall left ventricular systolic function is normal with, an EF between 60 - 65 %. The right ventricle is normal in size. The left atrium is normal in size. The right atrium is normal in size. Interatrial and interventricular septum intact. The aortic valve is trileaflet and appears structurally normal. There is trace mitral regurgitation. Mild tricuspid regurgitation present. Right ventricular systolic pressure is normal at < 35 mmHg. There is no pulmonic regurgitation present. The aortic root size is normal. Normal inferior vena cava with normal inspiratory collapse consistent with estimated right atrial pre ssure of 5 mmHg. There is no pericardial effusion. CONCLUSIONS -------- 1. Resting tachycardia (HR>100bpm). 2. The left ventricular size is normal. 3. There is borderline concentric left ventricular hypertrophy. 4. Overall left ventricular systolic function is normal with, an EF between 60 - 65 %. 5. There is trace mitral regurgitation. 6. Mild tricuspid regurgitation present. 7. There is no pulmonic regurgitation present. 8. There is no pericardial effusion. YARDAGE ESTIMATOR: Zoë Peres RDCS
[2020-08-03] MEDS ORDERED: ATORVASTATIN 20 MG TAB PO SCH (21:00)
[2020-08-03 21:46] LABS: Ferritin 323.6 ng/mL (10.0-291.0)
[2020-08-04] MEDS ORDERED: ASPIRIN 81 MG PO SCH (09:00)
== END 2020-08-03 16:40 | disposition home or self-care (01) ==
LOC: EC 09:28 → 6NMEDSUR 13:35
PROVIDERS: ADMIT Internal Medicine; ATTEND Internal Medicine
DX: R00.0 Tachycardia, unspecified (principal); I10 Essential (primary) hypertension; C56.9 Malignant neoplasm of unspecified ovary; D63.0 Anemia in neoplastic disease; D64.81 Anemia due to antineoplastic chemotherapy; T45.1X5A Adverse effect of antineoplastic and immunosuppressive drugs, initial encounter; M54.9 Dorsalgia, unspecified; R07.2 Precordial pain; Z79.899 Other long term (current) drug therapy; Z98.890 Other specified postprocedural states; Z90.710 Acquired absence of both cervix and uterus; Z87.891 Personal history of nicotine dependence; Z87.01 Personal history of pneumonia (recurrent); Z20.822 Contact with and (suspected) exposure to COVID-19; Z82.49 Family history of ischemic heart disease and other diseases of the circulatory system; Z80.0 Family history of malignant neoplasm of digestive organs; Z80.49 Family history of malignant neoplasm of other genital organs; Z80.3 Family history of malignant neoplasm of breast
CPT/HCPCS: 96361 ×3; 96360; 99285; 36415; 93005; 93306; 85379; 80061; 80053; 82728; 82550; 83615; 83735; 84484; 85025; 85610; 85730; 86140; 84145; 87635; 71046; 71275; G0378 ×2; Q9967